=== PATIENT | male | born 1965 | race Caucasian/White ===

== ENCOUNTER 2017-12-18 06:09 | Inpatient (IN) | payer SELFPAY ==
[~2017-12-18] VITALS: Ht 172.7 cm; Wt 79.5 kg
[~2017-12-18 06:09] MED LIST: OXYC5CAP2 PO
[2017-12-18] MEDS ORDERED: HYDROmorphone 2 MG/ML, 1ML ONE ×2 (06:39→07:44)
[2017-12-18] MEDS: HYDROmorphone 2 MG/ML, 1ML IVPush PRN ×2 (06:42→07:48)
[2017-12-18 06:48] LABS: BASOPHILS # (AUTO) 0.03 x10^3/uL (0-0.1); BASOPHILS % (AUTO) 0 % (0-1); EOSINOPHILS # (AUTO) 0.16 x10^3/uL (0-0.4); EOSINOPHILS % (AUTO) 2 % (1-7); LYMPHOCYTES # (AUTO) 1.62 x10^3/uL (1-3.4); LYMPHOCYTES % (AUTO) 21 % (22-44); MD NO; MEAN CORPUSCULAR HEMOGLOBIN 28.7 pg (27.5-34.5); MEAN CORPUSCULAR VOLUME 86.9 fL (81-97); MEAN PLATELET VOLUME 9.4 fL (7.4-10.4); MONOCYTES % (AUTO) 8 % (2-9); NEUTROPHILS # (AUTO) 5.42 x10^3/uL (1.8-6.8); NEUTROPHILS % (AUTO) 69 % (42-75); PLATELET COUNT 188 x10^3/uL (130-400); RED BLOOD COUNT 5.27 x10^6/uL (4.38-5.82)
[2017-12-18 06:57] LABS: ALANINE AMINOTRANSFERASE 20 U/L (12-78); ALBUMIN 3.5 g/dL (3.4-5.0); ANION GAP 8 mmol/L (5-15); CALCIUM 8.8 mg/dL (8.5-10.1); CHLORIDE 105 mmol/L (98-107)
[2017-12-18 06:59] LABS: ALKALINE PHOSPHATASE 104 U/L (45-117); BILIRUBIN,TOTAL 0.5 mg/dL (0.2-1.0); CREATININE 1.01 mg/dL (0.7-1.3); TOTAL PROTEIN 7.4 g/dL (6.4-8.2)
[2017-12-18] MEDS ORDERED: SODIUM CHLORIDE FLUSH 10ML SYR IVF ONE (07:00)
[2017-12-18] MEDS ORDERED: ROCURONIUM 10MG/ML,5ML ONE (08:36)
[2017-12-18] MEDS ORDERED: FENTANYL PF 100 MCG/2ML ONE (08:36)
[2017-12-18] MEDS ORDERED: MIDAZOLAM 1 MG/ML, 2ML ONE (08:36)
[2017-12-18] MEDS ORDERED: SUCCINYLCHOLINE 20 MG/ML, 10ML ONE (08:36)
[2017-12-18 08:47] VITALS: BP 133/81
[2017-12-18] MEDS ORDERED: SUGAMMADEX 200 MG/2 ML IVPush ONE (08:49)
[2017-12-18] MEDS ORDERED: BUPIVACAINE/PF-EPI 0.5% 1:200K ONE (08:52)
[2017-12-18] MEDS ORDERED: MORPHINE SULFATE 4 MG/ML, 1ML IVPush PRN (09:00)
[2017-12-18] MEDS ORDERED: OXYcodone 5 MG/5 ML ORAL.SOL UDC PO PRN (09:00)
[2017-12-18] MEDS ORDERED: LORazepam 2 MG/ML, 1ML IVPush PRN (09:00)
[2017-12-18] MEDS ORDERED: HYDROmorphone 1 MG/ML, 1ML IV PRN (09:00)
[2017-12-18] MEDS ORDERED: FENTANYL PF 100 MCG/2ML IV PRN (09:00)
[2017-12-18] MEDS ORDERED: MIDAZOLAM 1 MG/ML, 2ML IV PRN (09:00)
[2017-12-18] MEDS ORDERED: hydrALAzine 20 MG/ML, 1ML IV PRN (09:00)
[2017-12-18] MEDS ORDERED: ALBUTEROL SULFATE 2.5 MG/3 ML NPPB PRN (09:00)
[2017-12-18] MEDS ORDERED: METOPROLOL 1 MG/ML, 5ML IV PRN (09:00)
[2017-12-18] MEDS ORDERED: LABETALOL 5MG/ML, 20ML IV PRN (09:00)
[2017-12-18] MEDS ORDERED: MEPERIDINE/PF 25MG/0.5ML IVPush PRN (09:00)
[2017-12-18] MEDS ORDERED: EPHEDRINE 50 MG/ML, 1ML ONE (09:11)
[2017-12-18] MEDS ORDERED: PROPOFOL 10 MG/ML, 20ML ONE (09:11)
[2017-12-18] MEDS ORDERED: CEFOTETAN 2 GM ONE (09:11)
[2017-12-18] MEDS ORDERED: ONDANSETRON 2MG/ML, 2ML ONE (10:39)
[2017-12-18] MEDS ORDERED: GLYCOPYRROLATE 0.4 MG/2 ML, 2ML ONE (10:44)
[2017-12-18] MEDS ORDERED: NEOSTIGMINE 1 MG/ML, 10ML ONE (10:44)
[2017-12-18] MEDS ORDERED: MEPERIDINE/PF 50 MG/ML ONE (11:04)
[2017-12-18] MEDS ORDERED: OXYcodone 5 MG/5 ML ORAL.SOL UDC ONE (11:04)
[2017-12-18] MEDS ORDERED: LABETALOL 5MG/ML, 20ML ONE (11:27)
== END 2017-12-18 15:50 | disposition home or self-care (01) | DRG 352 ==
LOC: ED 07:21 → EDIP 08:46
PROVIDERS: ADMIT Surgery; ATTEND Surgery
PROC: 8E0W4CZ Robotic Assisted Procedure of Trunk Region, Percutaneous Endoscopic Approach (ICD-10-PCS; 2017-12-18)
PROC: 0YU54JZ Supplement Right Inguinal Region with Synthetic Substitute, Percutaneous Endoscopic Approach (ICD-10-PCS; principal; 2017-12-18 09:00)
DX: K40.31 Unilateral inguinal hernia, with obstruction, without gangrene, recurrent (principal); F17.200 Nicotine dependence, unspecified, uncomplicated; Z87.11 Personal history of peptic ulcer disease
CPT/HCPCS: 36415; 74021; 99285; S0074; 80053; 83690; 85025; 93005; 96374; J1170; J2175; J2250; J2405; J2704; J2710; J3010; C1781; J0330

== ENCOUNTER 2019-09-01 14:22 | Emergency (ER) | payer SELFPAY ==
[~2019-09-01] VITALS: Ht 172.7 cm; Wt 81.7 kg
[2019-09-01 14:24] VITALS: BP 134/70
--- NOTE | 2019-09-01 16:09 | NUR ---
NOT IN LOBBY @ [id number]
--- NOTE | 2019-09-01 16:13 | NUR ---
NOT IN LOBBY @ [id number]
--- NOTE | 2019-09-01 16:16 | NUR ---
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
--- NOTE | 2019-09-01 17:45 | NUR ---
Patient given discharge instructions and they have confirmed that they understand the instructions. Patient ambulatory with steady gait.
== END 2019-09-01 17:46 | disposition home or self-care (01) ==
LOC: ED 16:55
DX: K40.90 Unilateral inguinal hernia, without obstruction or gangrene, not specified as recurrent (principal)
CPT/HCPCS: 99282